=== PATIENT | male | born 1950 | race Caucasian/White ===

== ENCOUNTER 2021-04-28 17:47 | Inpatient (IN) | payer OTHER, SELFPAY ==
[~2021-04-28] VITALS: Ht 172.7 cm; Wt 63.5 kg
[2021-04-28 18:16] VITALS: BP 135/99
--- NOTE | 2021-04-28 18:28 | NUR ---
BIBA BLS TO ER BED 5
--- NOTE | 2021-04-28 18:55 | NUR ---
71 Y/O M BIBA FROM HOME FOR 5150, PT GRAVELY DISABLE, PER EMS PT CRISIS AT HOME. NO FOOD OR RUNNING WATER, FECAL MATTER ALL OVER THE HOME. PT HAS APPROX 50 CATS, DENIES PAIN AT THIS TIME. [facility]: THYROID, A FIB
[2021-04-28 19:00] LABS: BASOPHILS # (AUTO) 0.1 K/uL (0.00-0.22); BASOPHILS % (AUTO) 1.1 % (0.0-2.0); EOSINOPHILS # (AUTO) 0.1 K/uL (0-0.4); EOSINOPHILS % (AUTO) 1.4 % (0.0-4.0); HEMATOCRIT 43.2 % (36-52); HEMOGLOBIN 14.5 g/dL (12.0-18.0); LYMPHOCYTES # (AUTO) 1.5 K/uL (2.0-11.5); LYMPHOCYTES % (AUTO) 22.4 % (20.5-51.1); MEAN CORPUSCULAR HEMOGLOBIN 32 pg (27-31); MEAN CORPUSCULAR HGB CONC 34 g/dL (33-37); MEAN CORPUSCULAR VOLUME 94.7 fL (80-94); MONOCYTES # (AUTO) 0.4 K/uL (0.8-1.0); MONOCYTES % (AUTO) 5.7 % (1.7-9.3); NEUTROPHILS # (AUTO) 4.8 K/uL (1.8-7.7); NEUTROPHILS % (AUTO) 69.4 % (42.2-75.2); PLATELET COUNT (AUTO) 364 K/uL (140-450); RED BLOOD CELL COUNT(AUTO) 4.56 MIL/uL (4.20-6.10); RED CELL DISTRIBUTION WIDTH 14.5 % (11.6-13.7); WHITE BLOOD COUNT (AUTO) 6.9 K/uL (4.8-10.8)
--- NOTE | 2021-04-28 19:06 | NUR ---
X-RAY AT BEDSIDE.
[2021-04-28 19:22] LABS: ANION GAP 12.1 (8-16); ASPARTATE AMINOTRANSFERASE 32 U/L (15-37); CARBON DIOXIDE 27.1 mmol/L (21-32); CHLORIDE 111 mmol/L (98-107); CREATININE 1.2 mg/dL (0.6-1.3); GLUCOSE 97 mg/dL (74-106); POTASSIUM 4.2 mmol/L (3.5-5.1); SODIUM SERUM 146 mmol/L (136-145); TOTAL BILIRUBIN 1.1 mg/dL (0.0-1.0); UREA NITROGEN, BLOOD 26 mg/dL (7-18)
--- NOTE | 2021-04-28 19:22 | NUR ---
REPORT RECEIVED FROM JOSE BAXTER. CONTINUITY OF PT CARE AT THIS TIME.
[2021-04-28 19:27] LABS: ACETAMINOPHEN < 0.5 ug/ml (10-30); SALICYLATE < 2.8 mg/dL (2.8-20.0)
--- NOTE | 2021-04-28 19:28 | NUR ---
GAVE REPORT TO ANJELICA CARBAJAL.
--- NOTE | 2021-04-28 19:38 | NUR ---
PT SITTING IN BED LOCKED IN LOWEST POSITION W X2 SIDERAILS UP FOR PT SAFETY. PT EATING SANDHICH AND DRINKING MILK. PROVIDED W MORE MILK PER REQUEST. PT AOX4, GCS15, DENIES ANY PAIN, CHEST PAIN, SOB, FEVERS, CHILLS, N/V/D. PT REPORTS HE WAS JUST BROUGHT HERE BECAUSE [facility] THOUGHT PT SHOULD BE HERE FOR A CHECK UP. PT REPORTS LAST DAY EATING WAS X1 DAY AGO D/T NOT FEELING HUNGRY AND LAST BM X2 DAYS AGO. PT VSS. BREATHING EVEN AND UNLABORED. NAD NOTED, WILL CONTINUE TO MONITOR.
--- NOTE | 2021-04-28 19:40 | NUR ---
PT UNABLE TO PROVIDE URINE AT THIS TIME. WILL RE-ATTEMPT SOON.
--- NOTE | 2021-04-28 20:47 | NUR ---
PT PROVIDED W BLANKET.
--- NOTE | 2021-04-28 20:48 | NUR ---
ERMD AT BEDSIDE ASSESSING PT.
[2021-04-28] MEDS ORDERED: DILTIAZEM 30 MG TAB PO ONE (20:55)
--- NOTE | 2021-04-28 21:13 | NUR ---
[place] HR FLUCTUATING 99-120s, ERMD AWAARE.
--- NOTE | 2021-04-28 21:54 | NUR ---
PT VOIDED IN BED X1. PT PROVIDED W PERINEAL WIPES, REPLACED SHEETS W CLEAN LINENS AND PROVIDED PT W CLEAN GOWN.
--- NOTE | 2021-04-29 | NUR ---
PT APPEARS TO BE RESTING W EYES CLOSED IN L LATERAL POSITION W XW SIDERAILS UP FOR SAFETY. BLANKET ON, BREATHING EVEN AND UNLABORED. VSS. NAD NOTED, WILL CONTINUE TO MONITOR.
--- NOTE | 2021-04-29 04:00 | NUR ---
NO CHANGE IN PT STATUS. VSS. BREATHING EVEN AND UNLABORED. WILL CONTINUE TO MONITOR.
--- NOTE | 2021-04-29 07:18 | NUR ---
Pt report given to JOSE GALARZA. Transfer of care at this time.
--- NOTE | 2021-04-29 07:18 | NUR ---
Mary lee in [facility] - 04/29/21 at 0721 by NURY Pt report given to SOLOMON GALARZA. Transfer of care at this time.
--- NOTE | 2021-04-29 07:19 | NUR ---
REPORT RECEIVED FROM SOLOMON DEJESUS FOR PATIENT CONTINUITY OF CARE.
[2021-04-29] MEDS ORDERED: HYDROcodone/APAP 5/325 MG 1 TAB TAB PO PRN (07:40)
[2021-04-29] MEDS ORDERED: DOCUSATE SODIUM 100 MG GELCAP PO PRN (07:40)
[2021-04-29] MEDS ORDERED: ONDANSETRON 4 MG/2 ML VIAL IVP PRN (07:40)
[2021-04-29] MEDS ORDERED: MORPHINE SULFATE 2 MG/ML SYR IVP PRN (07:40)
[2021-04-29] MEDS ORDERED: LORazepam 2 MG/ML VIAL IM/IVP PRN (07:40)
[2021-04-29] MEDS ORDERED: SODIUM PHOS / POTASSIUM PHOS 1 PKT PDR PO PRN (07:40)
[2021-04-29] MEDS ORDERED: ACETAMINOPHEN 325 MG TAB PO PRN (07:40)
[2021-04-29] MEDS ORDERED: ZOLPIDEM 5 MG TAB PO PRN (07:40)
[2021-04-29] MEDS ORDERED: POTASSIUM CHLORIDE 10 MEQ TABER PO PRN (07:40)
[2021-04-29] MEDS ORDERED: MAG SULF 2000 MG/WATER PREMIX 50 ML IV PRN (07:40)
--- NOTE | 2021-04-29 08:00 | NUR ---
Patient will be admitted to care of DR. SIMPSON. Admited to TELEMETRY. Will go to room 115A. Belongings list completed. Report to SOLOMON DUMONT.
--- NOTE | 2021-04-29 08:20 | NUR ---
RECEIVED PATIENT FROM ER, AOX2-3, CONFUSED TO DATE/TIME AND NAME OF HOSPITAL. ATRIAL FIBRILLATION ON MONITOR, RATE CONTROLLED AT 95. RESPIRATIONS EVEN AND UNLABORED ON ROOM AIR. VITAL SIGNS STABLE. ORIENTED PATIENT TO PLAN OF ARE, PATIENT VERBALIZES UNDERSTANDING. HE IS A POOR HISTORIAN. SKIN INTACT, IV FLUIDS STARTED. WILL CONTINUE TO MONITOR.
[2021-04-29 08:25] VITALS: BP 136/87
--- NOTE | 2021-04-29 10:15 | NUR ---
MOVED PATIENT TO ROOM 128A SO HE CAN BE ROOMED WITH HIS . PATIENT IS COOPERATIVE, ATE 100% OF BREAKFAST, DENIES PAIN, AWAITING URINE SAMPLE. NO COMPLAINTS AT THIS TIME.
[2021-04-29 10:32] LABS: CHOL/HDL RATIO 2.6 (1-4.5); FREE T4 (FREE THYROXINE) 0.95 ng/dL (0.76-1.46); PHOSPHORUS 3.3 mg/dL (2.5-4.9); THYROID STIMULATING HORMONE 1.24 uIU/mL (0.34-3.74)
[2021-04-29 11:13] LABS: BILIRUBIN,URINE NEGATIVE (NEGATIVE); BLOOD, URINE NEGATIVE (NEGATIVE); COLOR,URINE YELLOW (YELLOW); LEUKOCYTE ESTERASE ,URINE NEGATIVE (NEGATIVE); NITRITE, URINE POSITIVE (NEGATIVE); UGLUCOSE NEGATIVE (NEGATIVE)
[2021-04-29 11:15] LABS: APPEARANCE,URINE SLIGHTLY CLOUDY (CLEAR)
[2021-04-29] MEDS: NACL 0.9% 1,000 ML IV SCH ×2 (11:19→18:17)
[2021-04-29 11:43] LABS: RBC,URINE NONE SEEN /HPF (0-5)
[2021-04-29 11:44] LABS: CALCIUM OXALATE CRYSTALS,UR None Seen /HPF (None Seen); COARSE GRANULAR CASTS,URINE None Seen /LPF (None Seen); FINE GRANULAR CASTS,URINE None Seen /LPF (None Seen); HYALINE CASTS, URINE None Seen /LPF (None Seen); OTHER CASTS, URINE None Seen /LPF (None Seen); OTHER CRYSTALS,URINE None Seen /HPF (None Seen); RED BLOOD CELL CASTS,URINE None Seen /LPF (None Seen); TRICHOMONAS,URINE None Seen /HPF (None Seen); TRIPLE PHOSPHATE CRYSTAL,UR None Seen /HPF (None Seen); URIC ACID CRYSTALS,URINE None Seen /HPF (None Seen); URINE AMORPHOUS URATE None Seen /HPF (None Seen); WAXY CASTS,URINE None Seen /LPF (None Seen); YEAST,URINE None Seen /HPF (None Seen)
[2021-04-29 11:49] LABS: BARBITURATE, URINE NEGATIVE ng/ml (NEG <=200); BENZODIAZEPINE, URINE NEGATIVE ng/mL (NEG <=200); CANNABINOID, URINE NEGATIVE ng/mL (NEG <=50); COCAINE, URINE NEGATIVE ng/mL (NEG <=300); OPIATE, URINE NEGATIVE ng/mL (NEG <=2000); PHENCYCLIDINE SCREEN,URINE NEGATIVE ng/mL (NEG <=25)
[2021-04-29 12:00] VITALS: BP 129/88
--- NOTE | 2021-04-29 13:15 | NUR ---
CONSTANT REORIENTATION PROVIDED. PATIENT DENIES ACUTE COMPLAINTS. EATING ALL OF MEALS, VOIDING FREELY IN URINAL.
[2021-04-29] MEDS: ECOTRIN 81 MG TABEC PO SCH (13:42)
[2021-04-29] MEDS: DILTIAZEM 30 MG TAB PO SCH ×2 (13:43→21:32)
[2021-04-29] MEDS: FUROSEMIDE 20 MG/2 ML VIAL IVP SCH (13:43)
[2021-04-29 16:00] VITALS: BP 118/70
--- NOTE | 2021-04-29 16:23 | NUR ---
PATIENT HAS BEEN SCREENED AND CATEGORIZED MODERATE NUTRITION RISK. PATIENT WILL BE SEEN WITHIN 3-[address]ION. [address]
[2021-04-29 17:33] LABS: BARBITURATE, URINE NEGATIVE ng/ml (NEG <=200); BENZODIAZEPINE, URINE NEGATIVE ng/mL (NEG <=200); CANNABINOID, URINE NEGATIVE ng/mL (NEG <=50); COCAINE, URINE NEGATIVE ng/mL (NEG <=300); OPIATE, URINE NEGATIVE ng/mL (NEG <=2000); PHENCYCLIDINE SCREEN,URINE NEGATIVE ng/mL (NEG <=25)
--- NOTE | 2021-04-29 18:38 | NUR ---
PATIENT COOPERATIVE THROUGHOUT THE SHIFT. FREQUENT REORIENTATION PROVIDED. DENIES PAIN AT THIS TIME. EATING DINNER, TOLERATING WELL, NO NAUSEA/VOMITING. VOIDING FREELY IN URINAL. CALL LIGHT WITHIN REACH. WILL ENDORSE TO NIGHT RN.
[2021-04-29 20:21] VITALS: BP 120/81
--- NOTE | 2021-04-29 22:15 | NUR ---
PATIENT SELF REPOSITIONS. REQUEST FOR SNACK GIVEN. HAILEY CROWDER RN
[2021-04-30 00:48] VITALS: BP 125/84
[2021-04-30 04:00] VITALS: BP 128/87
[2021-04-30] MEDS: NACL 0.9% 1,000 ML IV SCH ×3 (04:33→23:40)
[2021-04-30] MEDS: DILTIAZEM 30 MG TAB PO SCH ×2 (05:19→13:24)
--- NOTE | 2021-04-30 07:19 | NUR ---
HANDOFF WITH DAY TEAM REGISTERED NURSE, JUSTICE. HAILEY CROWDER RN
--- NOTE | 2021-04-30 07:49 | NUR ---
RECEIVED PATIENT, AOX2, RESPIRATIONS EVEN AND UNLABORED ON ROOM AIR, VITAL SIGNS STABLE. ATRIAL FIB/FLUTTER ON SIZE CHANGER. PATIENT DENIES PAIN AT THIS TIME. IV FLUIDS INFUSING. UPDATED PATIENT ON PLAN OF CARE AND REORIENTATION PROVIDED. WILL CONTINUE TO MONITOR.
[2021-04-30 08:00] VITALS: BP 116/85
[2021-04-30] MEDS: ECOTRIN 81 MG TABEC PO SCH (10:27)
[2021-04-30] MEDS: FUROSEMIDE 20 MG/2 ML VIAL IVP SCH (10:27)
--- NOTE | 2021-04-30 10:30 | NUR ---
ECHO DONE, IV WAS REMOVED, NEW IV PLACED TO RIGHT HAND, IV FLUIDS INFUSING, PATIENT ATE 100% OF BREAKFAST. NO COMPLAINTS OF PAIN.
--- NOTE | 2021-04-30 11:59 | NUR ---
DC PLANNING: THE PATIENT WAS ADMITTED FROM HOME THROUGH THE ED ON A 5150 HOLD FOR BEING GRAVELY DISABLED. HIS WAS ADMITTED AT THE SAME TIME FOR THE SAME DIAGNOSIS. [facility] CALLED PD TO BRING THE PATIENTS IN AFTER IT WAS DETERMINED THAT THEIR RESIDENCE IN NOT HABITABLE. THE PATIENT DID NOT INTERACT VERBALLY WITH THE CM, INFORMATION WAS OBTAINED FROM HIS MÓNICA. THE PATIENT LIVES IN A SINGLE STORY HOUSE WITH HIS AND IS INDEPENDENT IN ALL ACTIVITIES INCLUDING AMBULATION AND ADL'S. NO DME OR H/O HOME HEALTH, DC PLAN AT THIS TIME UNCLEAR PATIENT AND SPOUSE CANNOT RETURN HOME UNTIL IT IS CLEARED AND CLEANED. FLORINA IS WORKING WITH A FRIEND OF THE FAMILY, WYATT, WHO IS WORKING ON HIRING A CREW TO DO THIS, FLORINA IS ALSO SPEAKING WITH THE PATIENTS STEP-DAUGHTER TATYANA TO ASSIST WITH HOUSING (SEE NOTES ON MÓNICA BANEGAS). FLORINA WILL FOLLOW FOR NEEDS. Addendum: 04/30/21 at 1203 by Gabby Garcia CM Amended: Links added. Addendum: 05/01/21 at 1228 by Gabby Garcia CM DC PLANNING: CM MET WITH THE PATIENT AND HIS SPOUSE AT BEDSIDE TO DISCUSS DC PLANNING. DISCUSSED THE TELEPSYCH EVALUATION SCHEDULED FOR TODAY AND MADE PATIENT AWARE OF THE REASON FOR THE EVALUATION (DX OF GRAVE DISABILITY). THE PATIENT RESPONDED APPROPRIATELY TO QUESTIONS AND GAVE INPUT WHEN CM ASKED FOR IT. HE UNDERSTANDS THE PLAN MOVING FORWARD OF GETTING HIS RESIDENCE UP TO CODE WITH THE HELP OF WYATT ALBRIGHT AND TO STAY WITH HIS 'S GRANDCHILDREN WHILE THIS IS HAPPENING. CM WILL FOLLOW FOR NEEDS.
[2021-04-30 12:00] VITALS: BP 109/76
--- NOTE | 2021-04-30 14:00 | NUR ---
PATIENT TOLERATED LUNCH WELL, IV FLUIDS INFUSING. NO COMPLAINTS AT THIS TIME.
[2021-04-30 16:00] VITALS: BP 118/83
--- NOTE | 2021-04-30 16:32 | NUR ---
PATIENT HAD AN INCONTINENCE EPISODE, PATIENT ISNT ABLE TO VERBALIZE HIS NEEDS TO NURSE. PATIENT DENIES PAIN AT THIS TIME. CLEANED AND REPOSITIONED, WILL CONTINUE TO MONITOR.
--- NOTE | 2021-04-30 18:53 | NUR ---
PATIENT TOLERATED DINNER WELL, NO COMPLAINTS AT THIS TIME. WILL ENDORSE TO NIGHT RN.
--- NOTE | 2021-04-30 19:20 | NUR ---
RECEIVED PT REPORT FROM AM NURSE. DISCUSSED POC FOR CONTINUITY OF CARE.
[2021-04-30 20:00] VITALS: BP 123/76
[2021-04-30] MEDS: APIXABAN 2.5 MG TAB PO SCH (20:53)
[2021-04-30] MEDS: METOPROLOL 25 MG TAB PO SCH (20:53)
--- NOTE | 2021-04-30 21:00 | NUR ---
HS MEDS GIVEN . PT VOIDS PER URINAL WITH OCCASIONAL INCONTINENCE. PT APPROPRIATE. RESTING NAD. ALL SAFETY MEASURES IN PLACE. WILL CONTINUE TO MONITOR.
[2021-05-01] VITALS: BP 126/90
[2021-05-01 04:00] VITALS: BP 126/72
[2021-05-01] MEDS: METOPROLOL 25 MG TAB PO SCH ×2 (05:00→13:15)
[2021-05-01 06:13] LABS: ANION GAP 12.2 (8-16); ASPARTATE AMINOTRANSFERASE 26 U/L (15-37); CARBON DIOXIDE 27.2 mmol/L (21-32); CHLORIDE 106 mmol/L (98-107); GLUCOSE 86 mg/dL (74-106); MAGNESIUM 1.9 mg/dL (1.8-2.4); POTASSIUM 4.4 mmol/L (3.5-5.1); SODIUM SERUM 141 mmol/L (136-145); UREA NITROGEN, BLOOD 20 mg/dL (7-18)
[2021-05-01 07:15] LABS: BASOPHILS % (AUTO) 0.6 % (0.0-2.0); EOSINOPHILS # (AUTO) 0.2 K/uL (0-0.4); HEMATOCRIT 42.4 % (36-52); HEMOGLOBIN 14.2 g/dL (12.0-18.0); LYMPHOCYTES # (AUTO) 2.3 K/uL (2.0-11.5); LYMPHOCYTES % (AUTO) 30.8 % (20.5-51.1); MEAN CORPUSCULAR HEMOGLOBIN 32 pg (27-31); MEAN CORPUSCULAR HGB CONC 34 g/dL (33-37); MEAN CORPUSCULAR VOLUME 95.1 fL (80-94); MONOCYTES # (AUTO) 0.6 K/uL (0.8-1.0); MONOCYTES % (AUTO) 7.5 % (1.7-9.3); NEUTROPHILS # (AUTO) 4.3 K/uL (1.8-7.7); NEUTROPHILS % (AUTO) 58.1 % (42.2-75.2); PLATELET COUNT (AUTO) 343 K/uL (140-450); RED BLOOD CELL COUNT(AUTO) 4.45 MIL/uL (4.20-6.10); RED CELL DISTRIBUTION WIDTH 14.2 % (11.6-13.7); WHITE BLOOD COUNT (AUTO) 7.4 K/uL (4.8-10.8)
--- NOTE | 2021-05-01 07:30 | NUR ---
RECEIVED PATIENT REPORT FROM CASINO BANKER NURSE FOR CONTINUITY OF CARE. PT IS AOX2, ABLE TO MAKE NEEDS KNOWN. RESPIRATIONS EVEN AND UNLABORED. ON ROOM AIR AND NO DISTRESS NOTED. SKIN IS WARM, DRY, AND INTACT. IV SITE ON RAC 20G INFUSING FLUIDS WELL. PATIENT DENIES PAIN. PSYCH CONSULT PENDING. PLAN OF CARE DISCUSSED. SAFETY PRECAUTIONS IN PLACE. CALL LIGHT WITHIN REACH. WILL CONTINUE TO MONITOR.
[2021-05-01 08:00] VITALS: BP 131/88
--- NOTE | 2021-05-01 08:36 | NUR ---
CONTACTED TELEPSYCH SERVICES AND INFORMED THEM REGARDING NEW CONSULTATION.
[2021-05-01 08:39] LABS: ALBUMIN 2.7 g/dL (3.4-5.0)
[2021-05-01] MEDS ORDERED: lisinopriL 5 MG TAB PO SCH (09:00)
[2021-05-01] MEDS: APIXABAN 2.5 MG TAB PO SCH ×2 (09:34→20:32)
[2021-05-01] MEDS: FUROSEMIDE 20 MG/2 ML VIAL IVP SCH (09:40)
[2021-05-01] MEDS: NACL 0.9% 1,000 ML IV SCH ×2 (09:42→20:33)
--- NOTE | 2021-05-01 09:45 | NUR ---
ALL SCHEDULED MEDS GIVEN. PT IS STABLE. NO DISTRESS NOTED. WILL CONTINUE TO MONITOR.
[2021-05-01 12:00] VITALS: BP 120/87
--- NOTE | 2021-05-01 13:15 | NUR ---
ALL SCHEDULED MEDS GIVEN. PATIENT IS STABLE. NO DISTRESS NOTED. WILL CONTINUE TO MONITOR.
--- NOTE | 2021-05-01 14:47 | NUR ---
PATIENT WAS SEEN BY PSYCH MD THROUGH VIDEO CALL ON [employer].
[2021-05-01 16:00] VITALS: BP 112/84
--- NOTE | 2021-05-01 16:10 | NUR ---
CHECKED ON PATIENT. PT IS STABLE. NO DISTRESS NOTED. WILL CONTINUE TO MONITOR.
--- NOTE | 2021-05-01 19:35 | NUR ---
ENDORSED TO FORECLOSURE HOME INSPECTOR NURSE FOR CONTINUITY OF CARE. PT IS STABLE.
[2021-05-01 20:00] VITALS: BP 91/70
[2021-05-02] VITALS: BP 111/68
[2021-05-02 04:00] VITALS: BP 111/68
[2021-05-02] MEDS: NACL 0.9% 1,000 ML IV SCH ×2 (05:26→15:57)
[2021-05-02 06:59] LABS: BASOPHILS % (AUTO) 0.6 % (0.0-2.0); EOSINOPHILS # (AUTO) 0.2 K/uL (0-0.4); EOSINOPHILS % (AUTO) 2.8 % (0.0-4.0); HEMATOCRIT 43.3 % (36-52); HEMOGLOBIN 14.4 g/dL (12.0-18.0); LYMPHOCYTES # (AUTO) 2.2 K/uL (2.0-11.5); LYMPHOCYTES % (AUTO) 28.8 % (20.5-51.1); MEAN CORPUSCULAR HEMOGLOBIN 31 pg (27-31); MEAN CORPUSCULAR HGB CONC 33 g/dL (33-37); MEAN CORPUSCULAR VOLUME 94.3 fL (80-94); MONOCYTES # (AUTO) 0.7 K/uL (0.8-1.0); MONOCYTES % (AUTO) 9.1 % (1.7-9.3); NEUTROPHILS # (AUTO) 4.5 K/uL (1.8-7.7); NEUTROPHILS % (AUTO) 58.7 % (42.2-75.2); PLATELET COUNT (AUTO) 314 K/uL (140-450); RED BLOOD CELL COUNT(AUTO) 4.59 MIL/uL (4.20-6.10); RED CELL DISTRIBUTION WIDTH 14.4 % (11.6-13.7); WHITE BLOOD COUNT (AUTO) 7.6 K/uL (4.8-10.8)
--- NOTE | 2021-05-02 07:34 | NUR ---
RECEIVED PATIENT REPORT FROM SAXOPHONE ASSEMBLER NURSE FOR CONTINUITY OF CARE. PT IS AOX2, ABLE TO MAKE NEEDS KNOWN. RESPIRATIONS EVEN AND UNLABORED. ON ROOM AIR AND NO DISTRESS NOTED. SKIN IS WARM, DRY, AND INTACT. IV SITE ON RAC 20G INFUSING FLUIDS WELL. PATIENT DENIES PAIN. PLAN OF CARE DISCUSSED. SAFETY PRECAUTIONS IN PLACE. CALL LIGHT WITHIN REACH. WILL CONTINUE TO MONITOR.
[2021-05-02 08:00] VITALS: BP 99/63
[2021-05-02] MEDS ORDERED: LISI5TAB24 PO (08:54)
[2021-05-02] MEDS ORDERED: FURO40TA9 PO (08:54)
[2021-05-02] MEDS ORDERED: METO50TE2 PO (08:54)
[2021-05-02] MEDS ORDERED: APIX2.5 PO (08:54)
[2021-05-02] MEDS ORDERED: FUROSEMIDE 40 MG TAB PO SCH (09:00)
[2021-05-02] MEDS ORDERED: METOPROLOL SUCCINATE 50 MG TABER PO SCH (09:00)
[2021-05-02] MEDS ORDERED: lisinopriL 5 MG TAB PO SCH (09:00)
--- NOTE | 2021-05-02 09:21 | NUR ---
(05/02/21) RD INITIAL COMPLETED PLEASE REFER TO NUTRITION PROGRESS NOTE UNDER CARE ACTIVITY FOR ESTIMATED NUTRITION NEEDS. RD RECOMMENDATIONS: 1. CONTINUE CARDIAC DIET TOLERATED 2. RD WILL F/U 5-7 DAYS; LOW RISK. OTIS VACA MS, RDN
[2021-05-02] MEDS: APIXABAN 2.5 MG TAB PO SCH (09:37)
--- NOTE | 2021-05-02 10:38 | NUR ---
NOTIFIED PATIENT'S DAUGHTER REGARDING DISCHARGE ORDER. DAUGHTER WILL CALL BACK TO GIVE US TIME WHEN THEY WILL BE ABLE TO PICK PATIENT UP.
[2021-05-02 12:00] VITALS: BP 93/62
[2021-05-02 13:21] VITALS: BP 93/62
--- NOTE | 2021-05-02 13:55 | NUR ---
CHECKED ON PATIENT. PT IS STABLE. NO DISTRESS NOTED. WILL CONTINUE TO MONITOR.
[2021-05-02 15:15] LABS: ANION GAP 24.4 (8-16); ASPARTATE AMINOTRANSFERASE 33 U/L (15-37); CHLORIDE 116 mmol/L (98-107); CREATININE 1.1 mg/dL (0.6-1.3); GLUCOSE 88 mg/dL (74-106); MAGNESIUM 2.1 mg/dL (1.8-2.4); POTASSIUM 4.4 mmol/L (3.5-5.1); SODIUM SERUM 155 mmol/L (136-145); TOTAL BILIRUBIN 0.6 mg/dL (0.0-1.0); UREA NITROGEN, BLOOD 25 mg/dL (7-18)
[2021-05-02 16:00] VITALS: BP 111/75
--- NOTE | 2021-05-02 16:15 | NUR ---
ENDORSED DISCHARGE INSTRUCTIONS TO PATIENT. PT VERBALIZED UNDERSTANDING AND SIGNED DISCHARGE FORMS.
--- NOTE | 2021-05-02 16:25 | NUR ---
PATIENT DISCHARGED OFF THE UNIT. ESCORTED PATIENT TO THE FRONT LOBBY AND WAS PICKED UP FRIEND. PT WAS STABLE PRIOR TO DISCHARGE.
== END 2021-05-02 16:25 | disposition home or self-care (01) | DRG 292 ==
LOC: MED 17:47 → MTU 23:52 → MMU 04-29 10:30
PROVIDERS: ADMIT Student in an Organized Health Care Education/Training Program; ATTEND Student in an Organized Health Care Education/Training Program
DX: I50.43 Acute on chronic combined systolic (congestive) and diastolic (congestive) heart failure (principal); E44.0 Moderate protein-calorie malnutrition; E87.0 Hyperosmolality and hypernatremia; I42.7 Cardiomyopathy due to drug and external agent; R45.851 Suicidal ideations; F17.210 Nicotine dependence, cigarettes, uncomplicated; E07.9 Disorder of thyroid, unspecified; I48.91 Unspecified atrial fibrillation; Z20.822 Contact with and (suspected) exposure to COVID-19; K21.9 Gastro-esophageal reflux disease without esophagitis; I34.0 Nonrheumatic mitral (valve) insufficiency; F15.10 Other stimulant abuse, uncomplicated; Z71.51 Drug abuse counseling and surveillance of drug abuser; Z71.6 Tobacco abuse counseling; Z68.21 Body mass index [BMI] 21.0-21.9, adult
CPT/HCPCS: 36415; 70450; 71045; 80053; 80305; 81001; 82150; 83036; 83690; 83735; 83880; 84100; 84439; 84443; 84484; 85025; 85610; 85730; 87081; 87086; 93005; 99285; G0480; G0482; J1940; Q0092; U0003